=== PATIENT | male | born 1950 | race Caucasian/White ===

== ENCOUNTER → 2016-09-11 | Outpatient (CLI) | payer MEDICARE, OTHER ==
[~2016-09-11] MED LIST: LOPRESSOR25 MG PO; MELOXICAM15 MG PO; PRILOSEC20 MG PO; XANAX1 MG PO
== END | disposition short-term general hospital (02) ==
LOC: CLCARD 08:14
DX: I49.5 Sick sinus syndrome (principal); I48.0 Paroxysmal atrial fibrillation